=== PATIENT | female | born 1980 | race Caucasian/White ===

== ENCOUNTER 2023-08-04 08:58 | Outpatient (CLI) | payer BC, SELFPAY | END 2023-08-04 08:59 | disposition home or self-care (01) | PROVIDERS: Visit Provider Obstetrics & Gynecology | DX: Z01.419 Encounter for gynecological examination (general) (routine) without abnormal findings (principal); R53.83 Other fatigue; F41.9 Anxiety disorder, unspecified; Z13.6 Encounter for screening for cardiovascular disorders; Z13.1 Encounter for screening for diabetes mellitus | CPT/HCPCS: 80061; 82306; 82947; 84443 ==

== ENCOUNTER 2023-10-14 17:06 | Outpatient (CLI) | payer BC, SELFPAY ==
--- OUTSIDE RECORDS SUMMARY | 2023-10-14 17:08 | XMS_ITS | Clinical Summary ---
Author Name Unknown Organization [employer] [facility] Address [place], [place] [address] Care Team Providers Care Maintenance Associate Name Role Phone Denise Silva MD Primary Care Prov ider Allergies Active Allergy Reactions Criticality Noted Date Comments Latex 08/26/2006 Penicillins 08/26/2006 Medications Medication Sig Dispensed Refills Start Date End Date Status multivitamin (MVI) tablet Take 1 tablet by mouth once daily. 0 06/29/2014 Active ranitidine (ZANTAC) 75 mg tabletIndications:Gastr oesophageal reflux disease without esophagitis Take 1 tablet by mouth 2 times daily. 0 01/23/2015 Active codeine-guaiFENesin (ROBITUSSIN AC) 10-100 mg/5 mL liquidIndications:Cough Take 5-10 mL by mouth every 4 hours if needed for Cough. 120 mL 1 03/15/2015 Active Active Problems Problem Noted Date Diagnosed Date Screening for diabetes mellitus 01/23/2015 Pyelonephritis, unspecified 06/11/2011 Neck pain 03/22/2009 Issue of repeat prescriptions 05/27/2008 Overview: Pt has been issued a narcotics agreement. Please see initial note of 05/27/08 Jackie Rosas NP,[facility]............ 05/27/2008 1:00 PM Generalized anxiety disorder 08/26/2006 Pyelonephritis, unspecified 08/26/2006 Overview: 2000 Encounters Date Type Department Care Team Description 10/06/2023 Orders Only [facility] [address] [place] [address] Shannon Magaña 1 scan: (1-Ord) Surindero Final Report 08/04/2023 Lab Requisition [facility] [phone] Ariana Buck MD from Last 3 Months Immunizations Name Administration Dates Next Due Td (Age >=7 Years) 06/09/1999 Family History Medical History Relation Name Comments Good Health Daughter Hypertension Father and grandparent Good Health Mother Hyperlipidemia Other 1 grandparent Arthritis Other 2 grandparent Other Other 3 migraine Good Health Sister 1 Psychiatric illness Sister 2 manic de pression biploar Cancer-breast No Family History Cancer-colon No Family History Diabetes No Family History Relation Name Status Comments Daughter Father Mother Other 1 Other 2 Other 3 Sister 1 Sister 2 Social History Tobacco Use Types Packs/Day Years Used Date Smoking Tobacco: Every Day Cigarettes 0.5 8 Started: 09/15/2004; Last attempted to quit: 09/15/2012 Smokeless Tobacco: Never Tobacco Cessation:Ready to Q uit: Yes; Counseling Given: Yes Alcohol Use Standard Drinks/Week Comments Yes 2 (1 standard drink = 0.6 oz pur e alcohol) 2-three times a week PHQ-2 Answer Date Recorded PHQ-2 Score 0 08/09/2018 Sex and Gender Information Value Date Recorded Sex Assigned at Not on file Gender Identity Not on file Sexual Orientation Not on file Obstetrics History Para Term AB IAB SAB Ectopic Multiple Livin g Live Births 1 1 Date Outcome GA Total Labor Labor/2nd/3rd Weight Sex Delivery Anes PTL Sheron A1 A5 Name Cl in Last Filed Vital Signs Vital Sign Reading Time Taken Comments Blood Pressure 123/85 06/11/2018 9:37 AM [employer] Pulse 99 06/11/2018 9:37 AM [employer] Temperature 36.9 ??C (98.5 ??F) 06/11/2018 9:37 AM CS T Respiratory Rate 16 01/31/2009 1:51 PM CDT Oxygen Saturation 96% 06/11/2018 9:37 AM [employer] Inhaled Oxygen Concentration - - Weight 78.3 kg (172 lb 11.2 oz) 06/11/2018 9:37 AM [employer] Height 170.8 cm (5' 7.25) 06/11/2018 9:37 AM CS T Body Mass Index 26.85 06/11/2018 9:37 AM [employer] Plan of Treatment Health Maintenance Due Date Last Done Comments Tdap 1990 HIV for age 15-65 1994 Hepatitis C screening for age 18-79 1997 Tetanus booster 06/09/2009 06/09/1999 BMI (ht and wt on same day) for age 18+ 06/11/2019 06/11/2018 Depression screening for age 12+ 06/11/2019 06/11/2018 COVID-19 vaccine series (2022- season) 2023 Influenza for age 9-49 02/08/2024 Pap test for age 21-65 08/04/2026 , 08/04/2023, 01/23/2015, Additional history exists Pneumococcal series for age 6-64 Aged Out No longer eligible based on patient's age to complete this topic Procedures Procedure Name Priority Date/Time Associated Diagnosis Comments EXTENDED HOLTER Routine 10/06/2023 Palpitations LAB TRACKING EVENT Routine 08/04/2023 9: 00 AM [employer] NUB CARD TENDER THIN PREP PAP SCREEN IMAGED Routine 08/04/2023 9:00 AM [employer] HPV THIN PREP Routine 08/04/2023 9:00 AM [employer] from Last 3 Months Results * EXTENDED HOLTER (10/06/2023) Campos Davidson MD CARDIAC SERVICES ORD * LAB TRACKING EVENT (08/04/2023 9:00 AM [employer]) Other (Other) Client Collect / Unknown 08/04/2023 9:00 AM [employer] 08/04/2023 4:04 PM [employer] Ariana Buck MD [facility] [address] [place] [address], * (ABNORMAL) NUB CARD TENDER THIN PREP PAP SCREEN IMAGED (08/04/2023 9:00 AM [employer]) Case Report Gynecologic Cytology Report ? Case: [id number] ? Authorizing Provider: ??Ariana Buck MD ?? Collected: ? 08/04/2023 0900 ? Ordering Location: ? [facility] ?Received: ?08/05/2023 1036 ? First Screen: ?Chi, Xon Demetrius ? Pathologist: ? Reji Thomas MD ? Specimen: ?NUB CARD TENDER ThinPrep Vial Screening, Cervical ? 08/11/2023 3:39 PM [facility] [facility] INTERPRETATION/ RESULT ATYPICAL SQUAMOUS CELLS OF UNDETERMINED SIGNIFICANCE (ASCUS)(A) (none) 08/11/2023 3:39 PM [employer] IMEN ADEQUACY Satisfactory for evaluation Endocervical component present 08/11/2023 3:39 PM [employer] [facility] HPV REQUEST HPV and PAP 08/11/2023 3:39 PM [employer]PER [facility]AL LAB[facility]AT[facility] Date of LMP 07/24/2023 08/11/2023 3:39 PM [employer]PER [facility] Last Pap Date 08/11/2023 3:39 PM [employer] [facility] Comment:unknown Last Pap Result NIL 3:39 PM [employer] [facility] Abnormal Pap or [place] Bx in last 5 years No 08/11/2023 3:39 PM [employer] [facility] Menstrual Status Regular Periods 08/11/2023 3:39 PM [employer] [facility] [place] Bx Done Today No 08/11/2023 3:39 PM [employer]PER [facility] Additional Information 08/11/2023 3:39 PM [employer]PER [facility] Comment: Interpreted at [facility] - [address] [facility] [address], [place] [address] Automated Review Successful 08/11/2023 3:39 PM [employer] [facility] Comment:Specimen processed s uccessfully by automated educational program assistant device, ThinPrep Imaging System, [employer] ANCILLARY TESTING NUB CARD TENDER HPV Ordered, Please see separate report 08/11/2023 3:39 PM [employer] [facility] Note The pap test is a screening technique, not a diagnostic procedure. It is used primarily to screen for squamous cancers and precursor lesions. Published studies have shown that it is subject to both false negative and false positive results. The pap test should not be used as the sole means to diagnose or exclude pre-malignant and malignant lesions. 08/11/2023 3:39 PM [employer] [facility] Other (Cervical) 08/04/2023 9:00 AM [employer]PER 08/05/2023 10:36 AM [employer]PER Ariana Buck MD PATHOLOGY/CYTOLOG Y [facility] [address] [place] [address], * HPV HIGH RISK (08/04/2023 9:00 AM W[employer]OR [employer] SHIPPER) TYPE 16 Negative Negative 08/06/2023 1:39 PM [employer]OR [employer] SHIPPER [facility] TR[facility] LABORATORY TYPE 18 Negative Negative 08/06/2023 1:39 PM [employer]OR [employer] SHIPPER [facility] TR[facility] LABORATORY OTHER HIGH RISK TYPES Negative Negative 08/06/2023 1:39 PM [employer] INS[employer]OR [employer] SHIPPER [facility] Other (Cervical) 08/04/2023 9:00 AM [employer]OR AND SHIPPER 08/05/2023 10:36 AM [employer] INS[employer]OR AND SHIPPER Narrative [facility] - 08/06/2023 1:39 PM [employer]IPPER HPV types 16, 18, 31, 33, 35, 39, 45, 51, 52, 56, 58, 59, 66 and 68 DNA were undetectable or below the pre-set threshold. Methodology: Sonal Lexx 4800 HPV Test Ariana Buck MD MICROBIOLOGY [facility] [address] [place] [id number], from Last 3 Months Care Teams Maintenance Associate Relationship Specialty Start Date End Date Denise Silva MD [address] [place] [address] PCP - General Family Practice 03/15/15
--- NOTE | 2023-10-14 17:40 | MM_ITS ---
Patient: ELIZABETH JAIMES Facility:?[facility] Patient ID:?[id number] Site Patient ID:?[id number]. Site :?[id number] Study:?XRay-Breast Bilateral 3D screening mammogram w/cad-10/14/2023 5:38:12 PM Ordering Physician:Jarred Final Report: BILATERAL SCREENING MAMMOGRAM WITH COMPUTER-AIDED DETECTION AND TOMOSYNTHESIS TECHNIQUE: CC and MLO views were obtained. These mammographic images have been obtained using full-field digital technique. These mammographic images were interpreted with the benefit of computer-aided detection. Breast Tomosynthesis was used in this interpretation. COMPARISON FILM: Baseline. No priors available. FINDINGS: The breasts are heterogeneously dense, which may obscure small masses IMPRESSION: There is no radiographic evidence for malignancy. ASSESSMENT: BI-RADS Category 1: Negative RECOMMENDATION: Routine screening mammogram in 1 year. A lay language report of this examination will be provided to the patient. Mukesh Schaefer M.D. Diagnostic Radiologist [email or web address] MILAN/valerie R& Transcribed: 5:11 p.m. SHEEBA/Dictated by: Mukesh Schaefer MD @ 10/16/2023 1:13:00 PM Signed by:?Mukesh Schaefer MD @10/16/2023 8:29:58 PM (Electronic Signature)
== END 2023-10-14 17:07 | disposition home or self-care (01) ==
LOC: MAMMO 17:07
PROVIDERS: PCP Obstetrics & Gynecology; Visit Provider Obstetrics & Gynecology
DX: Z12.31 Encounter for screening mammogram for malignant neoplasm of breast (principal); R92.2 Inconclusive mammogram
CPT/HCPCS: 77063; 77067

== ENCOUNTER 2025-05-18 12:35 | Outpatient (CLI) | payer BC, SELFPAY ==
--- NOTE | 2025-05-18 13:00 | MR_ITS ---
[facility] [address] [facility] [address] Phone:?[phone] Fax:?[phone] Referring Physician Information: Reji Thompson M.D. [address] [facility] [address] Phone:?[phone] Fax:?[phone] Patient:Deirdre Núñez D.O.B:?1980 Sex:?Female Phone:?[phone] [facility] MRN:?[id number] Exam Date:?05/18/2025 EXAM: MRI EXAMINATION OF THE RIGHT KNEE CLINICAL INFORMATION: Right knee pain. No history of surgery to this area. Evaluate MCL. TECHNICAL INFORMATION: Axial PD and PD fat saturation. Sagittal PD and PD fat saturation. Coronal PD and T2 fat saturation. No prior studies for comparison. INTERPRETATION: Bones: There is a poorly defined and mild to moderate appearance of marrow edema signal which involves the high posterior periphery of the lateral femoral condyle without fracture. No other occult fracture or osseous contusion. No other abnormal bone marrow edema pattern is identified. Ligaments and tendons: There is an acute or subacute appearance of sprain injury involving the proximal one third of the medial collateral ligament. Irregularity, tearing and indistinctness involves the anterior two thirds of the proximal third of the ligament. The posterior one third of the ligament remains intact. Moderate associated changes of soft tissue fluid and edema signal. The iliotibial band, fibular collateral ligament, biceps femoris tendon and popliteus tendon all are intact. The anterior cruciate ligament is intact without acute sprain or tear. The posterior cruciate ligament is intact. Extensor Mechanism: The patellar and quadriceps tendons are intact. The medial and lateral retinacula are intact. Knee Joint: There is no knee joint effusion. No discrete popliteal cyst. There is no discrete loose body seen within the joint. Medial Compartment: There is no evidence for discrete medial meniscal tear. No displaced flap fragment or parameniscal cyst. There is no focal chondral defect. No other significant changes of chondromalacia. Lateral Compartment: There is no evidence for discrete lateral meniscal tear. No displaced flap fragment or parameniscal cyst. There is no focal chondral defect. No other significant changes of chondromalacia. Patellofemoral articulation: There is no focal chondral defect. No other significant chondromalacia. CONCLUSION: 1. Acute or subacute grade 2 MCL sprain injury. Irregularity, tearing and indistinctness involves the anterior two thirds of the ligament along its proximal one third. Moderate associated soft tissue hemorrhage and inflammation. 2. Mild to moderate marrow edema signal as would be in keeping with osseous contusion without fracture involving the high posterior periphery of the lateral femoral condyle. 3. No evidence for a meniscal tear. 4. No other residua of a ligament injury. 5. The articular cartilage is preserved. KES Electronically signed on 05/18/2025 2:35:00 PM by Bry Clemons M.D.
== END 2025-05-18 12:36 | disposition home or self-care (01) ==
PROVIDERS: Visit Provider Orthopaedic Surgery
DX: M25.561 Pain in right knee (principal); S83.411A Sprain of medial collateral ligament of right knee, initial encounter; S80.01XA Contusion of right knee, initial encounter
CPT/HCPCS: 73721